=== PATIENT | female | born 1990 | race African-American/Black ===

== ENCOUNTER 2016-12-01 23:30 | Emergency (ER) | payer OTHER ==
[~2016-12-01] VITALS: Ht 170.2 cm; Wt 84.1 kg
[~2016-12-01 23:30] MED LIST: BCP TD; DEPO-PROVER150 MG/M1 IM; MULTIVITAMIN1 CTB PO; NEURONTIN300 MG/CAP PO; NORCO 325 MG-51 TAB PO; ZOFRAN 4MG T4 MG/TAB PO
[2016-12-01 23:33] VITALS: TEMP 98.6
[2016-12-01] MEDS ORDERED: ZOFRAN ODT8 MG PO (23:37)
[2016-12-01] MEDS ORDERED: SINGULAIR 110 MG/TAB PO (23:37)
[2016-12-01] MEDS ORDERED: ALLEGRA ALLERG180 MG PO (23:38)
[2016-12-02 00:35] LABS: BASO % 0.3 % (0.0-2.0); EOS # 0.1 (0.0-0.7); EOS % 1.9 % (0-4.0); GRAN # 4.6 (1.4-6.5); GRAN % 62.3 % (42.2-75.2); HEMATOCRIT 38.3 % (37.0-47.0); HEMOGLOBIN 12.5 g/dl (12.5-16.0); LYMPH # 1.9 (1.2-3.4); LYMPH % 25.9 % (20.0-51.0); MEAN CELL VOLUME 90 fl (80.0-100.0); MEAN CORPUSCULAR HEMOGLOBIN 29 pg (27.0-31.0); MEAN CORPUSCULAR HGB CONC 33 g/dl (33.0-37.0); MEAN PLATELET VOLUME 11.6 fl (7.4-10.4); MONO # 0.7 (0.1-0.6); MONO % 9.3 % (1.7-9.3); PLATELET COUNT 226 K/mm3 (130-400); RED BLOOD COUNT 4.25 M/mm3 (4.10-5.30); REDCELL DISTRIBUTION WIDTH-CV 12.5 % (11.5-14.5); WHITE BLOOD COUNT 7.3 K/mm3 (4.8-10.8)
[2016-12-02 00:40] LABS: PH 5 (5-8); SQUAMOUS EPITHELIAL 0-2 /hpf; URINE APPEARANCE Clear; URINE BACTERIA None Seen /hpf; URINE BILIRUBIN Negative (NEGATIVE); URINE BLOOD Negative (NEGATIVE); URINE COLOR Amber; URINE GLUCOSE Negative (NEGATIVE); URINE KETONE Negative (NEGATIVE); URINE RBC 0-2 /hpf; URINE UROBILINOGEN >=4.0 mg/dL (NEGATIVE); URINE WBC 0-2 /hpf
[2016-12-02 00:47] LABS: ALANINE AMINOTRANSFERASE 104 U/L (9-52); ALBUMIN 4.3 gm/dL (3.5-5.0); ALKALINE PHOSPHATASE 251 U/L (50-136); ANION GAP 12 mmol/L (7-16); BILIRUBIN,TOTAL 1.2 mg/dL (0.0-1.0); BLOOD UREA NITROGEN 11 mg/dL (7-17); CALCIUM 9.2 mg/dL (8.4-10.2); CARBON DIOXIDE 27 mmol/L (22-30); CHLORIDE 100 mmol/L (98-107); CREATININE, serum 0.93 mg/dL (0.52-1.25); GLUCOSE 95 mg/dL (74-106); LIPASE 169 U/L (23-300); POTASSIUM 3.4 mmol/L (3.4-5.0); SODIUM 139 mmol/L (137-145)
[2016-12-02 00:48] LABS: C-REACTIVE PROTEIN < 0.5 mg/dL (0.0-0.9)
[2016-12-02] MEDS ORDERED: NORCO 325 MG-51 TAB PO (01:42)
[2016-12-02 02:21] VITALS: BP 118/63; PULSE 72
== END 2016-12-02 02:29 | disposition home or self-care (01) ==
LOC: COL.ER 23:30
PROVIDERS: Nurse Practitioner
DX: R10.13 Epigastric pain (principal); R11.0 Nausea; R63.0 Anorexia; R50.9 Fever, unspecified
CPT/HCPCS: J1170; J2405; J7030; Q9967

== ENCOUNTER 2017-01-13 13:14 | Day surgery (SDC) | payer OTHER ==
[~2017-01-13] VITALS: Ht 170.2 cm; Wt 84.7 kg
[~2017-01-13 13:14] MED LIST changes: +ALLEGRA ALLERG180 MG PO; +SINGULAIR 110 MG/TAB PO; +ZOFRAN ODT8 MG PO
[2017-01-13 14:19] VITALS: BP 113/75; PULSE 66; TEMP 97.7
[2017-01-13] MEDS ORDERED: PATANOL OPHTHALM5 ML OU (14:32)
[2017-01-13] MEDS ORDERED: FLONASE NASAL S16 GM NS (14:33)
[2017-01-13] MEDS ORDERED: VITAMIN D32000 I1 PO (14:35)
[2017-01-13] MEDS ORDERED: B-121000 MCG PO (14:35)
[2017-01-13] MEDS ORDERED: PROBIOTIC FORMU1 CAP PO (14:35)
[2017-01-13] MEDS ORDERED: PROTONIX 40MG T40 MG PO (14:36)
[2017-01-13] MEDS ORDERED: ZANTAC 150MG T150 MG PO (14:36)
[2017-01-13] MEDS ORDERED: PRILOTC PO (14:37)
[2017-01-13 15:25] VITALS: BP 124/81; PULSE 99; TEMP 97.2
[2017-01-13 15:30] VITALS: BP 122/75; PULSE 97
[2017-01-13 15:45] VITALS: BP 125/76; PULSE 96
[2017-01-13 17:18] VITALS: BP 106/45; PULSE 81
== END 2017-01-13 16:05 | disposition home or self-care (01) ==
LOC: SDCO 13:14
DX: K29.30 Chronic superficial gastritis without bleeding (principal); I10 Essential (primary) hypertension; R53.82 Chronic fatigue, unspecified; K58.2 Mixed irritable bowel syndrome
CPT/HCPCS: OP; J2250; J3010; J7030

== ENCOUNTER → 2017-03-30 | Outpatient (CLI) | payer OTHER ==
[~2017-03-30] MED LIST changes: +B-121000 MCG PO; +FLONASE NASAL S16 GM NS; +PATANOL OPHTHALM5 ML OU; +PRILOTC PO; +PROBIOTIC FORMU1 CAP PO; +PROTONIX 40MG T40 MG PO; +VITAMIN D32000 I1 PO; +ZANTAC 150MG T150 MG PO
== END ==
LOC: COL.VAS 08:00
DX: R06.02 Shortness of breath (principal)
CPT/HCPCS: J7674

== ENCOUNTER → 2017-04-23 | Outpatient (CLI) | payer OTHER ==
[2017-04-23] VITALS (9 sets, daily range): BP systolic 103–130; BP diastolic 60–83; PULSE 65–83
[~2017-04-23] MED LIST changes: +FLOVENT 110MCG7.9 GM IH; +PROAIR HFA0.09 MG/AC IH; +SIMETHICONE80 MG PO
[2017-04-23 09:19] LABS: INR 1.1 (0.8-3.0); PROTHROMBIN TIME 12.3 SECONDS (9.7-12.8)
== END ==
LOC: COL.RAD 08:02
PROVIDERS: Internal Medicine Gastroenterology
DX: K81.1 Chronic cholecystitis (principal); R74.8 Abnormal levels of other serum enzymes
CPT/HCPCS: 25757

== ENCOUNTER 2017-09-10 14:03 | Emergency (ER) | payer OTHER ==
[~2017-09-10] VITALS: Ht 170.2 cm; Wt 78.6 kg
[2017-09-10] MEDS ORDERED: AMOXICILLIN 8751 TAB PO (17:31)
[2017-09-10 17:48] VITALS: BP 147/89; PULSE 100; TEMP 98.5
== END 2017-09-10 17:49 | disposition home or self-care (01) ==
LOC: COL.ER 14:03
DX: H04.511 Dacryolith of right lacrimal passage (principal)
CPT/HCPCS: Q9967

== ENCOUNTER 2018-05-04 23:48 | Emergency (ER) | payer OTHER ==
[~2018-05-04] VITALS: Ht 170.2 cm; Wt 85.5 kg
[~2018-05-04 23:48] MED LIST changes: +AMOXICILLIN 8751 TAB PO
[2018-05-04 23:55] VITALS: BP 137/81; TEMP 98.6
[2018-05-05] MEDS ORDERED: FLEXERIL 1010 MG/TAB PO ×2 (00:42→01:14)
[2018-05-05] MEDS ORDERED: LEVBID0.375 MG PO (00:45)
[2018-05-05] MEDS ORDERED: ASTELIN NASAL S34 ML NS (00:45)
[2018-05-05] MEDS ORDERED: ZOFRAN ODT4 MG PO (00:46)
[2018-05-05] MEDS ORDERED: DEPO-PROVER150 MG/M1 IM (00:46)
[2018-05-05 01:16] VITALS: PULSE 79
== END 2018-05-05 01:16 | disposition home or self-care (01) ==
LOC: COL.ER 23:48
DX: S59.911A Unspecified injury of right forearm, initial encounter (principal); Z79.51 Long term (current) use of inhaled steroids; W50.0XXA Accidental hit or strike by another person, initial encounter; Y92.89 Other specified places as the place of occurrence of the external cause
CPT/HCPCS: J1885

== ENCOUNTER → 2018-06-02 | Outpatient (CLI) | payer OTHER ==
[~2018-06-02] MED LIST changes: +ASTELIN NASAL S34 ML NS; +FLEXERIL 1010 MG/TAB PO; +LEVBID0.375 MG PO; +ZOFRAN ODT4 MG PO
== END ==
LOC: COL.RAD 08:00
DX: M75.111 Incomplete rotator cuff tear or rupture of right shoulder, not specified as traumatic (principal)
CPT/HCPCS: J3301; Q9967

== ENCOUNTER 2019-02-23 22:03 | Emergency (ER) | payer BC ==
[~2019-02-23] VITALS: Ht 170.2 cm; Wt 81.4 kg
[2019-02-23 22:05] VITALS: TEMP 97.9
[2019-02-23] MEDS ORDERED: FLONASEALLERGY NS (23:17)
[2019-02-23] MEDS ORDERED: ALLEGRA 180MG180 MG PO (23:18)
[2019-02-23] MEDS ORDERED: RT ADVAIR HFA 2312 G IH (23:18)
[2019-02-23] MEDS ORDERED: LIALDA 1.2 GM1.2 GM PO (23:19)
[2019-02-24 00:14] VITALS: BP 117/84; PULSE 78
== END 2019-02-24 00:14 | disposition home or self-care (01) ==
LOC: COL.ER 22:03
DX: R07.2 Precordial pain (principal); K58.9 Irritable bowel syndrome, unspecified

== ENCOUNTER 2019-08-12 18:56 | Emergency (ER) | payer BC ==
[~2019-08-12] VITALS: Ht 170.2 cm; Wt 75.5 kg
[~2019-08-12 18:56] MED LIST changes: +ALLEGRA 180MG180 MG PO; +FLONASEALLERGY NS; +LIALDA 1.2 GM1.2 GM PO; +RT ADVAIR HFA 2312 G IH
[2019-08-12 19:16] VITALS: TEMP 97.7
[2019-08-12 19:46] LABS: COLLECTION METHOD CLEAN CATCH
[2019-08-12 19:55] LABS: PH 6 (5-8); SQUAMOUS EPITHELIAL 0-2 /hpf; URINE APPEARANCE Clear; URINE BACTERIA None Seen /hpf; URINE BILIRUBIN Negative (NEGATIVE); URINE BLOOD Negative (NEGATIVE); URINE COLOR Yellow; URINE GLUCOSE Negative (NEGATIVE); URINE KETONE Negative (NEGATIVE); URINE LEUKOCYTE ESTERASE Trace (NEGATIVE); URINE NITRATE Negative (NEGATIVE); URINE PROTEIN(semi-quant) Negative (NEGATIVE); URINE RBC 0-2 /hpf; URINE UROBILINOGEN Negative (NEGATIVE)
[2019-08-12] MEDS ORDERED: DOXYCYCLINE HY100 MG PO (21:19)
[2019-08-12 22:20] VITALS: BP 123/91; PULSE 85
== END 2019-08-12 22:23 | disposition home or self-care (01) ==
LOC: COL.ER 18:56
PROVIDERS: Nurse Practitioner
DX: N39.0 Urinary tract infection, site not specified (principal); A59.01 Trichomonal vulvovaginitis; K58.9 Irritable bowel syndrome, unspecified
CPT/HCPCS: J0696

== ENCOUNTER → 2019-12-29 | Outpatient (CLI) | payer BC ==
[~2019-12-29] MED LIST changes: +DOXYCYCLINE HY100 MG PO
== END ==
LOC: COL.RAD 07:28
DX: K83.01 Primary sclerosing cholangitis (principal)

== ENCOUNTER → 2020-01-05 | Outpatient (CLI) | payer BC | LOC: COL.RAD 07:26 | DX: K83.01 Primary sclerosing cholangitis (principal) | CPT/HCPCS: A9585 ==

== ENCOUNTER 2020-10-31 20:39 | Emergency (ER) | payer OTHER ==
[~2020-10-31] VITALS: Ht 170.2 cm; Wt 91.8 kg
[2020-10-31 21:20] VITALS: TEMP 97.9
[2020-10-31 21:42] LABS: COLLECTION METHOD CLEAN CATCH
[2020-10-31 21:48] LABS: MUCOUS Present /lpf; PH 5 (5-8); SQUAMOUS EPITHELIAL 0-2 /hpf; URINE APPEARANCE Clear; URINE BACTERIA None Seen /hpf; URINE BILIRUBIN Negative (NEGATIVE); URINE BLOOD Negative (NEGATIVE); URINE COLOR Yellow; URINE GLUCOSE Negative (NEGATIVE); URINE KETONE Negative (NEGATIVE); URINE LEUKOCYTE ESTERASE Negative (NEGATIVE); URINE NITRATE Negative (NEGATIVE); URINE PROTEIN(semi-quant) Negative (NEGATIVE); URINE RBC 0-2 /hpf; URINE UROBILINOGEN Negative (NEGATIVE); URINE WBC 0-2 /hpf
[2020-10-31 22:13] LABS: BASO % 0.3 % (0.0-2.0); EOS # 0.3 (0.0-0.7); GRAN # 6.2 (1.4-6.5); GRAN % 62.9 % (42.2-75.2); HEMATOCRIT 35.3 % (37.0-47.0); HEMOGLOBIN 11.5 g/dl (12.5-16.0); LYMPH # 2.5 (1.2-3.4); LYMPH % 25.3 % (20.0-51.0); MEAN CELL VOLUME 96 fl (80.0-100.0); MEAN CORPUSCULAR HEMOGLOBIN 31 pg (27.0-31.0); MEAN CORPUSCULAR HGB CONC 33 g/dl (33.0-37.0); MEAN PLATELET VOLUME 12.8 fl (7.4-10.4); MONO # 0.7 (0.1-0.6); MONO % 7.1 % (1.7-9.3); PLATELET COUNT 221 K/mm3 (130-400); RED BLOOD COUNT 3.69 M/mm3 (4.10-5.30); REDCELL DISTRIBUTION WIDTH-CV 12.8 % (11.5-14.5)
[2020-10-31 22:36] LABS: ALANINE AMINOTRANSFERASE 17 U/L (4-34); ALBUMIN 3.6 gm/dL (3.5-5.0); ALKALINE PHOSPHATASE 54 U/L (50-136); ANION GAP 8 mmol/L (7-16); AST,SGOT 30 U/L (15-37); BILIRUBIN,TOTAL < 0.1 mg/dL (0.0-1.0); BLOOD UREA NITROGEN 9 mg/dL (7-17); CALCIUM 8.8 mg/dL (8.4-10.2); CARBON DIOXIDE 23 mmol/L (22-30); CHLORIDE 103 mmol/L (98-107); CREATININE, serum 0.48 (0.52-1.25); GLUCOSE 93 mg/dL (74-106); POTASSIUM 3.3 mmol/L (3.4-5.0); SODIUM 134 mmol/L (137-145); TOTAL PROTEIN 7.2 gm/dL (6.4-8.2)
--- NOTE | 2020-10-31 23:30 | NUR ---
G2L1 at 20.6 weeks gestation is being evaluated in the ER after a fall down the stairs. Patient reports good movement, she denies CTX, LOF, or vaginal bleeding. FHR 145 [address]pm[address] precautions given. Dr. Stinson updated on patient's status and no further OB assessment needed.
[2020-11-01 01:25] VITALS: BP 116/67; PULSE 76
== END 2020-11-01 00:22 | disposition home or self-care (01) ==
LOC: COL.ER 20:39
PROVIDERS: Emergency Medicine; Nurse Practitioner Primary Care
DX: O9A.212 Injury, poisoning and certain other consequences of external causes complicating pregnancy, second trimester (principal); S06.0X0A Concussion without loss of consciousness, initial encounter; R51.9 Headache, unspecified; M54.5 Low back pain; O21.9 Vomiting of pregnancy, unspecified; Z3A.21 21 weeks gestation of pregnancy; Z88.2 Allergy status to sulfonamides; W10.9XXA Fall (on) (from) unspecified stairs and steps, initial encounter
CPT/HCPCS: J2550

== ENCOUNTER → 2021-03-19 | Outpatient (CLI) | payer OTHER ==
[~2021-03-19] MED LIST changes: +IBU600 MG PO; +ROXICODONE 55 MG/TAB PO; +VALTREX 50500 MG/TAB PO
== END ==
LOC: ZCOL.LAB 06:53
DX: Z20.822 Contact with and (suspected) exposure to COVID-19 (principal)

== ENCOUNTER 2021-03-22 06:29 | Inpatient (IN) | payer OTHER ==
[~2021-03-22] VITALS: Ht 170.2 cm; Wt 102.7 kg
[2021-03-22] VITALS (59 sets, daily range): BP systolic 103–145; BP diastolic 52–99; PULSE 65–144; TEMP 98.2–99.1
[~2021-03-22 06:29] MED LIST changes: -IBU600 MG PO; -ROXICODONE 55 MG/TAB PO; -VALTREX 50500 MG/TAB PO
--- NOTE | 2021-03-22 06:40 | NUR ---
0640- Pt ambulatory onto unit. G2L1 and 41 and 07/26. Shown to room and provided a clean gown to put on. 0652- EFM and TOCO connected to pt. Pt denies LOF, VB, and regular contractions. Positive movement per pt. Consents explained and provided. IV started and LR running.
[2021-03-22 08:00] LABS: ALBUMIN 3.5 gm/dL (3.5-5.0); BILIRUBIN,TOTAL 0.1 mg/dL (0.0-1.0); CALCIUM 9.1 mg/dL (8.4-10.2); CREATININE, serum 0.51 (0.52-1.25); POTASSIUM 3.4 mmol/L (3.4-5.0); TOTAL PROTEIN 6.9 gm/dL (6.4-8.2)
[2021-03-22 08:15] LABS: BASO % 0.3 % (0.0-2.0); EOS # 0.1 (0.0-0.7); EOS % 1.5 % (0-4.0); GRAN # 5.9 (1.4-6.5); GRAN % 67.4 % (42.2-75.2); HEMATOCRIT 37.6 % (37.0-47.0); HEMOGLOBIN 12.2 g/dl (12.5-16.0); LYMPH % 22.7 % (20.0-51.0); MEAN CELL VOLUME 92 fl (80.0-100.0); MEAN CORPUSCULAR HEMOGLOBIN 30 pg (27.0-31.0); MEAN CORPUSCULAR HGB CONC 32 g/dl (33.0-37.0); MEAN PLATELET VOLUME 11.9 fl (7.4-10.4); MONO # 0.6 (0.1-0.6); PLATELET COUNT 195 K/mm3 (130-400)
--- NOTE | 2021-03-22 08:24 | NUR ---
0824- Dr. Stinson into room to see pt and do an ultrasound. position determined vertex. Will be back around lunch time. No further orders at this time.
[2021-03-22] MEDS ORDERED: VALTREX 50500 MG/TAB PO (08:36)
--- NOTE | 2021-03-22 09:00 | NUR ---
0900- pt states they felt "fluid leaking." Small amount of yellow fluid noted on pad. Pads changed and gave pt a few minutes to see if leaking of fluid continued or not. 0908- Pt up to restroom to see if bladder is full. Pt states they feel like "fluid is still leaking." Pt cleaned up and pad and briefs applied to help continue to monitor color and amount of fluid.
[2021-03-22 09:16] LABS: INR 0.9 (0.8-3.0); PROTHROMBIN TIME 10.4 SECONDS (9.7-12.8)
--- NOTE | 2021-03-22 11:03 | NUR ---
0945- BP and HR did not take due to pt position of arm while lying in bed.
--- NOTE | 2021-03-22 14:12 | NUR ---
1412- Pt laid supine for catheter placement and SVE. Prolonged decel noted lasting 5 minutes, dropping into the 80s. SVE 3-4/80/-2. Catheter placement held off until baby's heart rate comes back up. 1418- Pt repositioned into the RL position. Baby's heart rate up into the 1 teens and maintaining. 1422- Dr. Stinson updated on situation. See physician notification.
--- NOTE | 2021-03-22 14:45 | NUR ---
1445- Intermittent early, late, and variables noted on the strip during this time.
--- NOTE | 2021-03-22 15:00 | NUR ---
1500- One variable also noted in this strip along with recurrent early decels.
--- NOTE | 2021-03-22 17:00 | NUR ---
1700- BP did not take due to patient arm position.
--- NOTE | 2021-03-22 17:35 | NUR ---
1735- Dr. Stinson into see pt. SVE /-2. Told to increase pitocin from 16 mu to 18 mu. No further orders at this time. Pt repositioned in LL position with the peanut ball. Call light within reach..
--- NOTE | 2021-03-22 18:00 | NUR ---
1800- Difficulty tacing contractions and FHR due to pt position. This RN at bedside readjusing monitors.
--- NOTE | 2021-03-22 19:04 | NUR ---
PT STATES INCREASED RECTAL PRESSURE, HAS LABORED DOWN FOR APPROXIMATELY 30 MINUTES. SVE COMPLETE/-1. INSTRUCT PT AND SPOUSE ON PUSHING. PT BEGINS PRACTICE PUSHING WITH THIS NURSE NOW.
--- NOTE | 2021-03-22 19:27 | NUR ---
UPDATE CALLED TO DR. ELLSWORTH, SEE PHYSICIAN NOTIFICATION.
--- NOTE | 2021-03-22 20:25 | NUR ---
1944- DR. ELLSWORTH IN ROOM TO EVALUATE PT. DISCUSSES CONCERNS OF RECURRENT DECELS WITH PUSHING AND WHILE LABORING DOWN. DISCUSSES POSSIBLE NEED FOR VACUUM OR FORCEP ASSISTED DELIVERY. PT VERBALIZES UNDERSTANDING. 1949- UMANZOR DC'D, 300 MLS URINE OUT. 1954- PT BEGINS PUSHING WITH DR. ELLSWORTH. DR. ELLSWORTH DISCUSSES VACUUM ASSISTED DELIVERY, PT VERBALIZES UNDERSTANDING AND AGREES TO ASSISTED DELIVERY. 1999- VACUUM IN PLACE WITH CONTRACTION. POP OFF. 2001- VACUUM IN PLACE WITH CONTRACTION. POP OFF. DR. ELLSWORTH STATES CONCERN THAT DUE TO LARGE AMOUNT OF HAIR ON HEAD IS HINDERING VACUUM ASSISTED DELIVERY. WOULD LIKE TO USE FORCEPS, DISCUSSES RISKS AND BENEFITS. PT VERBALIZES UNDERSTANDING AND AGREES TO FORCEP ASSISTED DELIVERY. 2002- Parish SCOTT, JOSÉ CALLED TO BE PRESENT FOR DELIVERY. 2005- FORCEPS APPLIED BY DR. ELLSWORTH, PT PUSHING. FORCEPS REMOVED AND DR. ELLSWORTH ATTEMPTS TO READJUST FORCEPS BUT HAS CONTINUED DIFFICULTY. PT STATES THAT THEY ARE UNCOMFORTABLE AND FEELS THAT SHE CAN PUSH BETTER WITHOUT THE FORCEPS IN PLACE. FORCEPS REMOVED. 2011- PT CONTINUES TO PUSH WITHOUT FORCEPS IN PLACE. 2014- PT AGREES TO USE OF VACUUM, DR. ELLSWORTH ATTEMPTS TO APPLY VACUUM. UNSUCCESSFUL DUE TO LARGE AMOUNT OF HAIR. 2015- DR ELLSWORTH DISCUSS USE OF A DIFFERENT STYLE OF FORCEPS TO ASSIST WITH DELIVERY. PT VERBALIZED UNDERSTANDING AND AGREES TO FORCEPS. FORCEPS APPLIED AND PT BEGINS PUSHING WITH FORCEP ASSIST. 2016- FORCEP ASSISTED DELIVERY OF VIABLE BABY GIRL. CORD CLAMPED BY DR. ELLSWORTH, CUT BY FOB. BABY TO RADIANT WARMER FOR STIMULATION, BABY CARES ASSUMED BY Yue CORTES RN. 2021- SPONTANEOUS DELIVERY OF INTACT PLACENTA. PITOCIN STARTED AT 333ML/HR PER PROTOCOL. DR. ELLSWORTH BEGINS REPAIR OF 3RD DEGREE LACERATION. 2024- RECOVERY STARTED.
--- NOTE | 2021-03-22 23:30 | NUR ---
EPIDURAL REMOVED, TIP INTACT. PT UP TO BATHROOM, ASSISTED WITH PERICARE, MESH UNDERWEAR AND PERIPAD IN PLACE. PT TO [facility] TO ASSIST [facility] WITH BATH PER HER REQUEST. TOLERATED WELL.
[2021-03-23 02:20] VITALS: BP 120/70; PULSE 82; TEMP 98.8
[2021-03-23 07:23] LABS: BILIRUBIN,TOTAL 0.2 mg/dL (0.0-1.0); CREATININE, serum 0.59 (0.52-1.25); HEMOGLOBIN 11.4 g/dl (12.5-16.0); POTASSIUM 3.6 mmol/L (3.4-5.0); TOTAL PROTEIN 6.4 gm/dL (6.4-8.2)
[2021-03-23 07:28] LABS: HEMATOCRIT 34.5 % (37.0-47.0)
[2021-03-23 07:42] VITALS: BP 135/84; PULSE 83; TEMP 98.7
[2021-03-23] MEDS ORDERED: IBU600 MG PO (09:43)
[2021-03-23] MEDS ORDERED: ROXICODONE 55 MG/TAB PO (09:44)
[2021-03-23 11:55] VITALS: BP 139/78; PULSE 71; TEMP 97.8
[2021-03-23 17:00] VITALS: BP 142/75; PULSE 79; TEMP 98.6
[2021-03-23 20:15] VITALS: BP 135/72; PULSE 73; TEMP 98.1
[2021-03-24 09:06] VITALS: BP 116/77; PULSE 88; TEMP 99.1
== END 2021-03-24 16:00 | disposition home or self-care (01) | DRG 768 ==
LOC: LDR 06:29 → OB 13:29
PROVIDERS: ADMIT Obstetrics & Gynecology
PROC: 10D07Z3 Extraction of Products of Conception, Low Forceps, Via Natural or Artificial Opening (ICD-10-PCS; principal; 2021-03-22)
PROC: 0DQR0ZZ Repair Anal Sphincter, Open Approach (ICD-10-PCS; 2021-03-22)
PROC: 3E033VJ Introduction of Other Hormone into Peripheral Vein, Percutaneous Approach (ICD-10-PCS; 2021-03-22)
DX: O48.0 Post-term pregnancy (principal); Z37.0 Single live birth; O98.32 Other infections with a predominantly sexual mode of transmission complicating childbirth; O70.20 Third degree perineal laceration during delivery, unspecified; K51.90 Ulcerative colitis, unspecified, without complications; O77.0 Labor and delivery complicated by meconium in amniotic fluid; O99.824 Streptococcus B carrier state complicating childbirth; O99.52 Diseases of the respiratory system complicating childbirth; J45.909 Unspecified asthma, uncomplicated; O99.62 Diseases of the digestive system complicating childbirth; K21.9 Gastro-esophageal reflux disease without esophagitis; M79.7 Fibromyalgia; O66.5 Attempted application of vacuum extractor and forceps; A60.09 Herpesviral infection of other urogenital tract; O76 Abnormality in fetal heart rate and rhythm complicating labor and delivery; Z3A.41 41 weeks gestation of pregnancy
CPT/HCPCS: J2540; J2590; J7120

== ENCOUNTER 2021-03-29 13:16 | Emergency (ER) | payer OTHER ==
[~2021-03-29 13:16] MED LIST changes: +IBU600 MG PO; +ROXICODONE 55 MG/TAB PO; +VALTREX 50500 MG/TAB PO
== END 2021-03-29 15:05 | disposition home or self-care (01) ==
LOC: COL.ER 13:16
DX: R69 Illness, unspecified (principal)